=== PATIENT | male | born 1990 | race Hispanic/Latino ===

== ENCOUNTER 2018-05-29 01:16 | Emergency (ER) | payer OTHER ==
[2018-05-29 01:25] VITALS: BP 124/86; PULSE 105; RESP 19; TEMP 97.6; O2SAT 98
[2018-05-29] MEDS ORDERED: Tdap Vaccine 0.5 ml Vial (10-64 yrs) IM ONE (01:46)
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
== END 2018-05-29 04:20 | disposition home or self-care (01) ==
LOC: H.ER 01:16
DX: S00.83XA Contusion of other part of head, initial encounter (principal); S09.90XA Unspecified injury of head, initial encounter; Y04.0XXA Assault by unarmed brawl or fight, initial encounter; Y92.89 Other specified places as the place of occurrence of the external cause